=== PATIENT | female | born 2000 | race Caucasian/White ===

== ENCOUNTER 2019-06-22 19:51 | Emergency (ER) | payer BC ==
--- NOTE | 2019-06-22 22:04 | ED ---
Dizziness - HPI Summary HPI Summary: This patient is a 19 year old F presenting to ED with a chief complaint of dizziness since 06/19/2019. Patient had class on 06/19/2019 until 2099 and she felt her vision get spotty. Patient used to get migraines before and she thought she was getting a migraine. Patient was standing and then she leaned on the edge of the desk. The next thing the patient remembers is that she was lying on a table. Patient states she was fully unconscious for a few seconds, but she does not remember what happened. Patient went home after waking up and sitting through the rest of class and she ate some food. Since then, the patient was not been feeling well. She reports nausea, dizziness, and dull headache behind eyes. Patient reports she hasnt been sleeping as much. Patient denies fever. She thinks she has been eating normally. Patient has recently had albuterol treatments that make her very jittery, and she reports feeling anxious and hands shaking. She also has dizziness when her head moves. She reports that her vision gets weird and she gets a headache behind the eyes. Patient used to get migraines, but she has never fainted before. Patient is taking control and she is currently on her period. Every once in a while patient feels like her balance is off. The patient rates the pain 2/10 in severity. Symptoms aggravated by moving head. Symptoms alleviated by nothing. - History Of Current Complaint Chief Complaint: EDDizziness Stated Complaint: FAINTED PER PT Time Seen by Provider: 06/22/19 21:52 Hx Obtained From: Patient Onset/Duration: Gradually Timing: Days - Since 06/19/2019 Severity Initially: Mild Severity Currently: Mild Character: Dizzy Aggravating Factor(s): Change In Head Position Alleviating Factor(s): Nothing Associated Signs And Symptoms: Positive: Negative - Fever, Visual Changes, Other : - Headache - Allergies/Home Medications Allergies/Adverse Reactions: Allergies Allergy/AdvReac Type Severity Reaction Status Date / Time No Known Allergies Allergy Verified 06/22/19 19:58 Home Medications: Home Medications Norethindr/Eth Estradiol(Nf) [Lo Loestrin Fe (NF)] 1 tab PO DAILY 06/22/19 [ History Confirmed 06/22/19] PMH/Surg Hx/FS Hx/Imm Hx Endocrine/Hematology History: Denies: Hx Diabetes Cardiovascular History: Denies: Hx Hypercholesterolemia, Hx Hypertension Respiratory History: Reports: Hx Asthma - Surgical History Surgical History: None Surgery Procedure, Year, and Place: Denies Infectious Disease History: No Infectious Disease History: Denies: Traveled Outside the [place] in Last 30 Days - Family History Known Family History: Negative: Cardiac Disease, Hypertension, Diabetes - Social History Alcohol Use: Occasionally Hx Substance Use: No Substance Use Type: Reports: None Hx Tobacco Use: No Smoking Status (MU): Never Smoked Tobacco Review of Systems Negative: Fever Eyes: Other - Spotty vision Neurological: Other - Dizziness, jittery Positive: Headache All Other Systems Reviewed And Are Negative: Yes Physical Exam - Summary Physical Exam Summary: Appearance: Well-appearing, Well-nourished, lying in bed comfortable Skin: Warm, dry, no obvious rash Eyes: sclera anicteric, no conjunctival pallor ENT: mucous membranes moist Neck: deferred Respiratory: No signs of respiratory distress Cardiovascular: Appears well perfused, pulses are nml Abdomen: deferred Musculoskeletal: Moving all 4 extremities without obvious discomfort Neurological: Awake and alert, mentation is normal, speech is fluent and appropriate Psychiatric: affect is normal, does not appear anxious or depressed Triage Information Reviewed: Yes Vital Signs On Initial Exam: Initial Vitals Temp Pulse Resp BP Pulse Ox 97.7 F 93 16 151/80 96 06/22/19 19:56 06/22/19 19:56 06/22/19 19:56 06/22/19 19:56 06/22/19 19:56 Vital Signs Reviewed: Yes Procedures - Sedation Patient Received Moderate/Deep Sedation with Procedure: No Diagnostics - Vital Signs Vital Signs Temp Pulse Resp BP Pulse Ox 06/22/19 19:56 97.7 F 93 16 151/80 96 - Laboratory Result Diagrams: 06/22/19 22:07 06/22/19 22:07 Lab Statement: Any lab studies that have been ordered have been reviewed, and results considered in the medical decision making process. - EKG 2018 Cardiac Rate: NL - 89 BPM EKG Rhythm: Sinus Rhythm ST Segment: Normal Ectopy: None Summary of EKG Findings: NSR at 89 BPM, P waves, QRS complex, and T waves are within normal limits, T waves and intervals are normal, no ischemic changes. This is a normal EKG. Dr. Crow has reviewed and interpreted this EKG. Re-Evaluation - Re-Evaluation First Eval Re-Evaluation Time: 23:07 Comment: Discussed results with patient. Patient will be discharged home with dx of syncope. Patient understands and agrees with this plan. Dizzy Course/Dx - Course Course Of Treatment: This patient is a 19 year old F presenting to ED with a chief complaint of loss of consciousness on 06/19/2019 and dizziness since then. An EKG at 2018 revealed NSR at 89 BPM, P waves, QRS complex, and T waves are within normal limits, T waves and intervals are normal, no ischemic changes. This is a normal EKG. Blood work obtained without abnormality. Discussed results with patient. Patient will be discharged home with dx of syncope. Patient understands and agrees with this plan. - Diagnoses Provider Diagnoses: Syncope Discharge ED - Sign-Out/Discharge Documenting (check all that apply): Patient Departure - Discharge - Discharge Plan Condition: Good Disposition: HOME Patient Education Materials: Syncope (ED) Referrals: [facility] @ [Outside] Additional Instructions: The screening blood work and EKG we did were all normal, so I think your faint the other day falls into the category of benign syncope. No further testing is needed at this time. - Billing Disposition and Condition Condition: GOOD Disposition: Home - Attestation Statements Document Initiated by Scribe: Yes Documenting Scribe: Byron Mcdonald Provider For Whom Racheal is Documenting (Include Credential): Gwyn Crow MD Scribe Attestation: Byron Leal, scribed for Gwyn Crow MD on 06/23/19 at 0643. Scribe Documentation Reviewed: Yes Provider Attestation: The documentation as recorded by the Byron ledezma accurately reflects the service I personally performed and the decisions made by me, Gwyn Crow MD Status of Scribe Document: Viewed
[2019-06-22 22:15] LABS: ABS Eosinophils 0.1 10^3/ul (0-0.6); ABS Lymphocytes 1.5 10^3/ul (1.0-4.8); ABS Monocytes 0.4 10^3/ul (0-0.8); ABS Neutrophils 1.7 10^3/ul (1.5-7.7); Eosinophil % 3.6 %; Hematocrit 40 % (35-47); Hemoglobin 13.3 g/dL (12.0-16.0); Lymphocyte % 38.9 %; Mean Corpuscular HGB Conc 34 g/dL (31-36); Mean Corpuscular Hemoglobin 31 pg (27-31); Mean Corpuscular Volume 91 fL (80-97); Mean Platelet Volume 7.6 fL (7.4-10.4); Nucleated Red Blood Cells % 0.1; Platelet Count 212 10^3/uL (150-450); Red Blood Count 4.35 10^6 /uL (3.70-4.87); Red Cell Distribution Width 13 % (10-15); White Blood Count 3.7 10^3/uL (3.5-10.8)
[2019-06-22 22:30] LABS: ALT 11 U/L (7-52); AST 15 U/L (13-39); Albumin 4.3 g/dL (3.2-5.2); Albumin/Globulin Ratio 1.5 (1-3); Alkaline Phosphatase 49 U/L (34-104); Anion Gap 7 mmol/L (2-11); BUN/Creatinine Ratio 19.5 (8-20); Blood Urea Nitrogen 17 mg/dL (6-24); CO2 Carbon Dioxide 26 mmol/L (22-32); Calcium 9.2 mg/dL (8.6-10.3); Chloride 108 mmol/L (101-111); EGFR African American 100.4 (>60); Globulin 2.8 g/dL (2-4); Glucose 100 mg/dL (70-100); Sodium 141 mmol/L (135-145); Total Protein 7.1 g/dL (6.4-8.9)
[2019-06-22 22:38] LABS: HCG Pregnancy < 0.60 mIU/mL
[2019-06-22 22:56] LABS: TSH (Thyroid Stimulating Horm) 3.05 mcIU/mL (0.34-5.60)
[2019-06-22 23:13] LABS: Urine Appearance Clear; Urine Bilirubin Negative (Negative); Urine Blood 1+ (Negative); Urine Color Yellow; Urine Glucose Negative (Negative); Urine Ketones Negative (Negative); Urine Nitrite Negative (Negative); Urine Protein Negative (Negative); Urine Specific Gravity 1.019 (1.010-1.030); Urine Urobilinogen Negative (Negative)
[2019-06-22 23:15] LABS: Urine Bacteria Absent (Absent); Urine Red Blood Cell Trace(0-2/hpf) (Absent); Urine Squamous Epithelial Cell Present (Absent); Urine White Blood Cell Trace(0-5/hpf) (Absent)
[2019-06-22 23:26] VITALS: BP 119/86
== END 2019-06-22 23:25 | disposition home or self-care (01) ==
LOC: ED 19:51
DX: R55 Syncope and collapse (principal); J45.909 Unspecified asthma, uncomplicated
CPT/HCPCS: 36415; 80053; 81003; 81015; 84443; 84702; 85025; 87086; 93005; 99282